=== PATIENT | female | born 1930 | race Caucasian/White ===

== ENCOUNTER 2016-08-30 07:50 | Emergency (ER) | payer OTHER, BC ==
--- NOTE | 2016-08-30 08:08 | PDOC ---
Attending Attestation - Resident Resident Name: Kennedy Beal - ED Attending Attestation I have performed the following: I have examined & evaluated the patient, The case was reviewed & discussed with the resident, I agree w/resident's findings & plan, Exceptions are as noted - HPI HPI: 08/30/16 08:07 The patient is an 86-year-old female, on plavix but not anticoagulants who presents to the emergency department with low back pain after a mechanical fall from standing yesterday. She indicates that the pain is lateral, and in the lower lumbar areas. She denies head or neck trauma or pain. She denies upper or lower extremity weakness or paresthesias. She denies bladder or bowel incontinence or retention. 08/30/16 08:16 08/30/16 09:46 - Physicial Exam PE: 08/30/16 08:07 She is well-appearing and in no acute distress She has no cervical, thoracic, lumbar or sacral vertebral body tenderness. She has bilateral lower lumbar paraspinal muscle tenderness 08/30/16 08:15 08/30/16 08:21 08/30/16 09:47 - Medical Decision Making 08/30/16 09:25 The patient is well-appearing and in no acute distress She does not have any midline vertebral body tenderness Her tenderness is very clearly lateral and related to the paraspinal muscles Her back pain does not increase when she bears weight She is able to ambulate without increased pain X-ray emergency Department interpretation: Scoliosis, degenerative joint disease , no evidence of acute fracture Clinical impression: Back contusion Paraspinal muscle strain I discussed the physical exam findings, ancillary test results and final diagnoses with the patient. I answered all of the patient's questions. The patient was satisfied with the care received and felt comfortable with the discharge plan and treatment plan. The patient will call their primary care physician within 24 hours to arrange follow-up and will return to the Emergency Department with any new, persistent or worsening symptoms. 08/30/16 09:43 Addendum was made to x-ray, showing compression of T12 of unclear age On repeat examination, there is no midline vertebral body tenderness at that spinal level. She continues to deny lower extremity weakness or paresthesias, bladder or bowel incontinence or retention. I feel that this compression is likely old. The patient was given copies of her disks as well as the reports, and will follow-up with her primary care physician as well as orthopedics. 08/30/16 09:46 Discharge Disposition - Diagnosis Contusion, back - Discharge Dispostion Disposition: HOME Condition at time of disposition: Stable - Referrals Referrals: Alexey Ackerman MD [Staff Physician] - - Patient Instructions Printed Discharge Instructions: DI for Low Back Pain Additional Instructions: Your x-rays show that you have a partial compression of the 12th thoracic vertebral body. We suspect that this is an old finding. It is very important that you follow-up with her primary care physician as well as an orthopedic doctor for further evaluation. Take Tylenol 500 mg every 6 hours as needed for pain. Return to the emergency department immediately with ANY new, persistent or worsening symptoms. You MUST call and follow up with your doctor tomorrow. Please make sure your doctor reviews the results of your emergency department evaluation.
[2016-08-30 08:21] VITALS: BMI 24.2
[2016-08-30 08:22] VITALS: TEMP 97.2
--- NOTE | 2016-08-30 09:39 | PDOC ---
History of Present Illness - General Chief Complaint: Injury Stated Complaint: S/P FALL BACK MURRIETA Time Seen by Provider: 08/30/16 08:05 - History of Present Illness Initial Comments: 86 y/o F on plavix and with a 3 year implanted holter monitor presents after falling on back last night when getting up to urinate without using her cane. She feels like she lost her balance and was unable to stay up straight. 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 She states she fell flat on her back and denies head trauma. She has lower back pain rated at a 8/10 with no radiation of pain. Pain is still present but does not change with standing or walking. Pt is able to ambulate at this time. She denies any numbness or tingling in lower extremities or any loss of function in lower extremities. She did not hear any cracks or pops at the time. She feels nervous at this time because she would like to make sure she did not "damage her back" and feels nauseous awaiting results and from being nervous. She denies vomiting, fevers, chills, generalized weakness, palpitations at the time of fall, change in vision, hearing changes, cough, sob , chest pain, loss of consciousness. Past History - Past Medical History Allergies/Adverse Reactions: Allergies Allergy/AdvReac Type Severity Reaction Status Date / Time Penicillins Allergy Swelling Verified 08/30/16 07:53 Home Medications: Ambulatory Orders Atorvastatin Ca [Lipitor] 40 mg PO HS 08/30/16 Clopidogrel Bisulfate [Clopidogrel] 75 mg PO DAILY 08/30/16 Gabapentin [Neurontin] 300 mg PO DAILY 08/30/16 Isosorbide Mononitrate [Isosorbide Mononitrate ER] 60 mg PO DAILY 08/30/16 Pantoprazole Sodium [Protonix] 40 mg PO DAILY 08/30/16 Cardiac Disorders: Yes HTN: Yes Hypercholesterolemia: Yes Other medical history: NEUROPATHY, GLAUCOMA,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/SURGICAL REPAI - Surgical History Appendectomy: Yes Cardiac Surgery: Yes (QUADRUPLE BYPASS 1 CARDIAC STENT) - Psycho/Social/Smoking Cessation Hx Anxiety: No Suicidal Ideation: No Smoking History: Former smoker Have you smoked in the past 12 months: No Information on smoking cessation initiated: No Hx Alcohol Use: Yes (RARE) Drug/Substance Use Hx: No Substance Use Type: Alcohol Review of Systems - Review of Systems Able to Perform ROS?: Yes Comments:: CONSTITUTIONAL: Absent: fever, no chills, no fatigue EYES: Absent: visual changes 0ENT: Absent: hearing changes CARDIOVASCULAR: Absent: chest pain, no palpitations RESPIRATORY: Absent: cough, no SOB GI: Absent: abdominal pain, no vomiting, no constipation, no diarrhea GENITOURINARY: Absent: dysuria, no frequency MUSCULOSKELETAL: +lower back pain Absent: no arthralgia, no myalgia NEURO: Absent: headache, numbness, tingling *Physical Exam - Vital Signs Last Vital Signs Temp Pulse Resp BP Pulse Ox 97.2 F L 86 16 186/85 99 08/30/16 07:51 08/30/16 07:51 08/30/16 07:51 08/30/16 07:51 08/30/16 07:51 - Physical Exam Comments: GENERAL: Well-appearing, well-nourished. No apparent distress. HEENT: Normocephalic, atraumatic. EOM intact. CARDIOVASCULAR: Normal S1, S2. Regular rate and rhythm. +systolic murmur 2/6 PULMONARY: Clear to auscultation bilaterally. ABDOMEN: Soft, non-distended, non-tender. EXTREMITIES: Normal ROM in all four extremities. No gross deformities. SKIN: Warm, dry. No rash MSK: +paraspinal lower back pain. NEUROLOGICAL: No focal neurological deficits. B/L equal sensation to light touch in UE, LE, and face. Medical Decision Making - Medical Decision Making 08/30/16 08:23 Pt to have spine thoracic and lumbar xray to check for fractures. 08/30/16 09:53 Lumbar XR imaging shows partial compression of T12 of unclear age. Pt to be discharged and to f/u with PCP and f/u with Dr. Ackerman for partial compression of T12. Pt to take tylenol extra strength every 6 hours as needed for pain. Pt understands plan and states she will f/u with both PCP (Dr. Ortiz) and Dr. Ackerman. *DC/Admit/Observation/Transfer Diagnosis at time of Disposition: Contusion, back, Fall, Back pain - Discharge Dispostion Disposition: HOME Condition at time of disposition: Stable - Referrals Referrals: Alexey Ackerman MD [Staff Physician] - STAFF,NOT ON [Non Staff, Medical] - (Dr. Harris) Agustin Amado MD [Staff Physician] - - Patient Instructions Printed Discharge Instructions: DI for Low Back Pain, How to Prevent Falls Additional Instructions: Follow up with your primary care physician after this emergency room visit. Your back xray shows a compression of your vertebrae at T12. You can follow up with the orthopedic doctor, Dr. Ackerman. For your back pain you can take extra strength tylenol every 6 hours as needed. Follow up with your golf manager to check your heart monitor for signs of any irregular heart rhythms. If your symptoms worsen please come back to the emergency room.
[2016-08-30 09:47] VITALS: BP 152/62; PULSE 69
== END 2016-08-30 10:23 | disposition home or self-care (01) ==
LOC: FER 07:50
DX: S30.0XXA Contusion of lower back and pelvis, initial encounter (principal); M54.9 Dorsalgia, unspecified; W18.39XA Other fall on same level, initial encounter; Y93.89 Activity, other specified; Y92.9 Unspecified place or not applicable; Z95.0 Presence of cardiac pacemaker; Z95.1 Presence of aortocoronary bypass graft; I10 Essential (primary) hypertension; E78.00 Pure hypercholesterolemia, unspecified; Z87.891 Personal history of nicotine dependence
CPT/HCPCS: 72070-TC; 72100-TC; 99281-25